=== PATIENT | female | born 1955 | race Caucasian/White ===

== ENCOUNTER 2016-08-02 07:30 | Day surgery (SDC) | payer OTHER ==
[2016-08-02 10:01] VITALS: RESP 20; TEMP 98.2; O2SAT 98
[2016-08-02 10:04] VITALS: BP 186/81; PULSE 71
== END 2016-08-02 10:20 | disposition home or self-care (01) | DRG 951 ==
LOC: SURG 07:30
PROVIDERS: ATTEND Surgery
DX: Z12.11 Encounter for screening for malignant neoplasm of colon (principal); K57.30 Diverticulosis of large intestine without perforation or abscess without bleeding
CPT/HCPCS: J2001

== ENCOUNTER 2019-02-13 10:49 | Day surgery (SDC) | payer OTHER ==
[2019-02-13] MEDS ORDERED: MOXIFLOXACIN-HOME SOL RIGHTEYE ONE ×2 (11:24→11:27)
[2019-02-13] MEDS: CYCLOPENTOLATE 1% SOL ONE ×3 (11:24→11:30)
[2019-02-13] MEDS: TROPICAMIDE 1% OPHTH SOL ONE ×3 (11:24→11:30)
[2019-02-13] MEDS ORDERED: KETOROLAC/HOME 0.5% SOL RIGHTEYE ONE ×3 (11:24→11:30)
[2019-02-13] MEDS: PHENYLEPHRINE HCL 10% OPHTHAL SOL ONE ×3 (11:24→11:30)
[2019-02-13] MEDS: TETRACAINE HCL 0.5 % 1 DROP SOL ONE ×2 (11:30→12:22)
[2019-02-13] MEDS ORDERED: MIDAZOLAM 2 MG/2 ML SOL ONE (11:54)
[2019-02-13] MEDS ORDERED: FENTANYL 100MCG/2ML SOL ONE (11:54)
[2019-02-13] MEDS ORDERED: POVIDONE IODINE 5% SOL ONE (12:16)
[2019-02-13] MEDS ORDERED: LIDOCAINE HCL 2% MPF 10 ML SOL ONE (12:16)
[2019-02-13] MEDS ORDERED: BSS W/ 0.5 MG P.F. EPI 1 BOTTLE ONE (12:17)
[2019-02-13] MEDS ORDERED: ACETAZOLAMIDE 250 MG PO ONE (12:18)
[2019-02-13 12:43] VITALS: TEMP 97.4; O2SAT 95
[2019-02-13 12:56] VITALS: BP 168/76; PULSE 68; RESP 18
== END 2019-02-13 13:05 | disposition home or self-care (01) | DRG 125 ==
LOC: SURG 10:49
PROVIDERS: ATTEND Ophthalmology
DX: H25.89 Other age-related cataract (principal)
CPT/HCPCS: J2250; J3010; A9270-GY

== ENCOUNTER 2019-03-06 11:25 | Day surgery (SDC) | payer OTHER ==
[2019-03-06] MEDS: CYCLOPENTOLATE 1% SOL ONE ×3 (11:44→11:50)
[2019-03-06] MEDS: TROPICAMIDE 1% OPHTH SOL ONE ×3 (11:44→11:50)
[2019-03-06] MEDS: PHENYLEPHRINE HCL 10% OPHTHAL SOL ONE ×3 (11:44→11:50)
[2019-03-06] MEDS ORDERED: MOXIFLOXACIN-HOME SOL LEFTEYE ONE ×2 (11:45→11:48)
[2019-03-06] MEDS ORDERED: KETOROLAC/HOME 0.5% SOL LEFTEYE ONE ×3 (11:45→11:51)
[2019-03-06] MEDS: TETRACAINE HCL 0.5 % 1 DROP SOL ONE ×2 (11:51→13:21)
[2019-03-06] MEDS ORDERED: FENTANYL 100MCG/2ML SOL ONE (12:01)
[2019-03-06] MEDS ORDERED: ONDANSETRON HCL 4 MG/2 ML SOL ONE (12:01)
[2019-03-06] MEDS ORDERED: MIDAZOLAM 2 MG/2 ML SOL ONE (12:01)
[2019-03-06] MEDS ORDERED: POVIDONE IODINE 5% SOL ONE (13:15)
[2019-03-06] MEDS ORDERED: LIDOCAINE HCL 2% MPF 10 ML SOL ONE (13:15)
[2019-03-06] MEDS ORDERED: BSS W/ 0.5 MG P.F. EPI 1 BOTTLE ONE (13:15)
[2019-03-06] MEDS ORDERED: ACETAZOLAMIDE 250 MG PO ONE (13:26)
[2019-03-06] MEDS ORDERED: ACETAZOLAMIDE 500 MG CER PO ONE (13:44)
[2019-03-06 13:45] VITALS: BP 160/84; PULSE 77; RESP 20; TEMP 97.5; O2SAT 95
== END 2019-03-06 13:55 | disposition home or self-care (01) | DRG 125 ==
LOC: SURG 11:25
PROVIDERS: ATTEND Ophthalmology
DX: H25.89 Other age-related cataract (principal)
CPT/HCPCS: J2250; J2405; J3010; A9270-GY